=== PATIENT | female | born 1975 | race Caucasian/White ===

== ENCOUNTER 2017-10-15 07:05 | Day surgery (SDC) | payer OTHER ==
[2017-10-15] MEDS ORDERED: NAPROXEN SODIU550 M1 PO (12:59)
== END 2017-10-15 15:20 | disposition home or self-care (01) ==
LOC: CIR.AMB 07:05 → EDBD 13:45 → CIR.AMB 15:01
DX: N84.0 Polyp of corpus uteri (principal)